=== PATIENT | male | born 1955 | race Caucasian/White ===

== ENCOUNTER 2023-12-02 07:38 | Day surgery (SDC) | payer MEDICAID ==
[2023-12-02] MEDS ORDERED: MIDAZOLAM HCL 5 MG/5 ML VIAL ONE (08:04)
[2023-12-02] MEDS ORDERED: MEPERIDINE 100 MG INJ. 100 MG/ML VIAL ONE (08:04)
[2023-12-02] MEDS ORDERED: SIMETHICONE 40 MG/0.6 ML ML ONE (08:04)
[2023-12-02 09:00] VITALS: O2SAT 96
[2023-12-02 15:31] VITALS: BP_SYST 123; PULSE 75; RESP 14
== END 2023-12-02 10:59 | disposition home or self-care (01) ==
LOC: SDS 07:38 → SMU 07:39 → SDS 10:59
PROVIDERS: ATTEND Internal Medicine Gastroenterology
DX: Z12.11 Encounter for screening for malignant neoplasm of colon (principal); D12.0 Benign neoplasm of cecum; K63.5 Polyp of colon; K62.1 Rectal polyp; K64.8 Other hemorrhoids; I10 Essential (primary) hypertension; E11.9 Type 2 diabetes mellitus without complications; E78.5 Hyperlipidemia, unspecified; Z79.82 Long term (current) use of aspirin; Z79.84 Long term (current) use of oral hypoglycemic drugs; Z79.899 Other long term (current) drug therapy
CPT/HCPCS: 45380; 99152; 82948; 88305; G0378; J2250; J2175